=== PATIENT | male | born 1945 ===

== ENCOUNTER → 2021-03-23 | Emergency (ER) | payer OTHER ==
[~2021-03-23] VITALS: Ht 165.1 cm; Wt 84.4 kg
[~2021-03-23] MED LIST: ATORVASTATIN CA10 MG PO; ZESTRIL5 MG PO
== END | disposition home or self-care (01) ==
LOC: ER 10:34
DX: S80.02XA Contusion of left knee, initial encounter (principal); W18.09XA Striking against other object with subsequent fall, initial encounter; Y93.89 Activity, other specified; Y92.89 Other specified places as the place of occurrence of the external cause; Y99.8 Other external cause status

== ENCOUNTER 2022-02-28 13:41 | Outpatient (CLI) | payer OTHER | END 2022-02-28 13:42 | disposition home or self-care (01) | LOC: LAB 13:41 | PROVIDERS: ATTEND Urology | DX: R97.20 Elevated prostate specific antigen [PSA] (principal) ==

== ENCOUNTER 2022-03-09 09:13 | Outpatient (CLI) | payer OTHER | END 2022-03-09 09:19 | disposition home or self-care (01) | LOC: SONOGRAMA 09:13 | PROVIDERS: ATTEND Internal Medicine Gastroenterology | DX: R10.9 Unspecified abdominal pain (principal) ==

== ENCOUNTER 2022-05-12 07:02 | Outpatient (CLI) | payer OTHER | END 2022-05-12 07:04 | disposition home or self-care (01) | LOC: SONOGRAMA 07:02 | PROVIDERS: ATTEND Urology | DX: C61 Malignant neoplasm of prostate (principal); R97.20 Elevated prostate specific antigen [PSA] ==